=== PATIENT | female | born 1940 | race Caucasian/White ===

== ENCOUNTER 2017-12-09 09:44 | Outpatient (RCR) | payer MEDICARE, OTHER ==
[2014-12-29 08:08] VITALS: Wt 103.6 kg
[2017-11-30 09:28] VITALS: BP 171/82
[2017-11-30 09:46] LABS: PLATELET COUNT, AUTOMATED 164 K/uL (150-450)
[~2017-12-09 09:44] MED LIST: ACE3 PO; ACET-1718 PO; AMLO-552 PO; ANAS1TAB35 PO; ASCO-182 PO; ASCO100T15 PO; ASPI-1471 PO; ASPI81TA94 PO; AZIT500T47 PO; BISO1TAB91 PO; CALC1TAB32 PO; CALC500T6 PO; CHOL10005 PO; DEN120I SUBQ; DOCU-202 PO; DOXA8TAB11 PO; FLUO-202 PO; GLUC-198 PO; GLY25 PO; GUALA600 PO; LOR5/325 PO; MAGN27TA6 PO; MET500 PO; METF-411 PO; METF-420 PO; METF-421 PO; MULT-1085 PO; MULT-1335 PO; NAPR220C12 PO; OMEP-218 PO; OXYGENHOME INH; PER PO; POTA-53 PO; POTASSIUM CHLORIDE PO; SILV20CR2 TP; VITAMINS; WARF-12 PO; ZIA10 PO; ZINC30TA5 PO; [UNRECOGNIZED DRUG - CODE] PO
[2017-12-09 10:03] VITALS: BP 131/84
--- NOTE | 2017-12-09 18:39 | ONCOLOGY FOLLOW UP NOTE ---
EVENT DATE: December 09, 2017 REASON FOR FOLLOWUP 1. Oligometastatic breast cancer, ongoing aromatase inhibitor therapy. 2. Renal cell carcinoma, status post partial nephrectomy. INTERIM HISTORY Sharmaine returns to clinic for a follow-up visit today. She is accompanied by her . Symptomatically, she reports that she has been doing about the same, but she has had some more problems with bilateral shoulder pain. She does have some ongoing fatigue. Her appetite is good, and her weight has been pretty stable. She reports no changes in bowel or bladder habits. She denies abdominal pain. She has noticed no new lumps or bumps in the breast or underarms. She continues to take Arimidex once daily, and she does not miss doses. REVIEW OF SYSTEMS Otherwise negative, and all systems were reviewed. ONCOLOGY HISTORY 1. Initial presentation in spring with a mammogram showing a nonspecific density in the right breast posterior to the nipple, as well as concern for nipple inversion. A subsequent ultrasound showed a 2.2 x 2.0 x 1.0 cm hypoechoic abnormality in the 6 o'clock position. She then underwent an ultrasound-guided biopsy of the right breast mass. a. December 28, 2014, right modified radical mastoidectomy. Pathology shows invasive ductal carcinoma, 1.5 cm, five of seven lymph nodes positive. Estrogen receptor positive at 98%, progesterone receptor positive at 95%, HER2/ rik was 1+, with Ki-67 being 18.9%. b. January 18, 2015: CT PET scan shows hypermetabolic focus in the left acetabulum with SUV of 6.7. c. January 22, 2015: MRI pelvis: 1.9 cm isolated bone metastatic lesion within the anterosuperior left acetabulum. d. January 31, 2015: Left iliac core biopsy shows involvement by involvement by a non-small cell carcinoma with features most compatible with metastatic adenocarcinoma of breast origin. Of note, tumor markers at this time were unremarkable. e. February 07, 2015: Initiation of palliative Arimidex 1 mg p.o. daily. f. February 26, 2015: Initiation of palliative radiation to the left acetabulum and chest wall. g. Ongoing clinical followup with tumor markers and imaging. Her most recent follow-up CT PET scan was on January 18, 2015. This showed postoperative changes from right mastectomy, postoperative changes with one FDG uptake over the right chest wall, and FDG avid focus in the left acetabulum with no CT correlate. Incidentally noted was an enlarged main pulmonary artery suggesting pulmonary arterial hypertension. h. May 20, 2017: CT PET scan: Postoperative changes from right breast mastectomy, cholecystectomy and surgical changes to the left kidney are stable; no evidence of breast cancer recurrence or metastasis in the neck, chest, abdomen, pelvis or upper thighs. 2. Renal cell carcinoma. Initial presentation in mid 2015 with imaging concerns for a left kidney mass. a. February 15, 2016: Core needle biopsies of left kidney mass show renal carcinoma, clear cell type, grade 1 (well differentiated), no angiolymphatic invasion is identified. b. April 23, 2016: Left partial nephrectomy. Pathology: 2.8 cm (pT1a) unifocal renal cell carcinoma, clear cell type. Sarcomatoid features and tumor necrosis were not identified. This was a grade 1, well differentiated renal cell carcinoma. Capsular and resection margins were negative for carcinoma. PAST MEDICAL HISTORY 1. Type 2 diabetes mellitus. 2. Obesity. 3. Breast cancer, as above. 4. Renal cell carcinoma, as above. 5. Reported mild depression. 6. Hypertension. PAST SURGICAL HISTORY 1. Status post cervical spinal fusion. 2. History of cholecystectomy. 3. History of hysterectomy. 4. History of cataract surgery. 5. History of right knee replacement. 6. Breast surgery and partial nephrectomy as noted in the Oncologic History. CURRENT MEDICATIONS 1. Multivitamin. 2. Arimidex 1 mg p.o. daily. 3. Metformin. 4. Potassium. 5. Doxazosin. 6. Fluoxetine. 7. Lisinopril/hydrochlorothiazide. 8. Glyburide. ALLERGIES Include KIWI and DIAZEPAM. FAMILY HISTORY There is a family history of breast cancer in a maternal aunt, diagnosed at 60- plus years. There is also a family history of lung cancer. SOCIAL HISTORY The patient is retired. 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 She is and has two sons. She drinks alcohol only occasionally. There is no history of smoking or illicit drug use. VITAL SIGNS Temperature is 98.1, blood pressure 131/84, heart rate is 61, respirations 18, oxygen saturation is 90% on room air. Weight is 103.6 kg. PHYSICAL EXAMINATION GENERAL: Patient is alert and oriented times three, in no apparent distress, sitting in the exam room chair. She is in good spirits, and quite interactive. HEENT: Exam reveals anicteric sclerae. NEUROLOGIC: Exam is grossly nonfocal and her gait is somewhat antalgic, but stable. EXTREMITIES: Exam reveals some edema of the bilateral lower extremities, mild. There is no erythema or tenderness to palpation. LABORATORY STUDIES Reviewed per the [facility] record. IMAGING CT/PET scan from December 03, reveals no evidence of FDG avid malignancy. There is evidence of prior right mastectomy with implant reconstruction. There is a 1.5 cm nodule within the implant itself superiorly. This is not FDG avid and very likely benign. There is evidence of partial left nephrectomy changes without recurrent nodularity. ASSESSMENT AND PLAN 1. Oligometastatic ER positive breast cancer. Sharmaine continues to do pretty well in general. She remains on aromatase inhibitor therapy with modest, if any toxicity. She does have some ongoing arthralgias, particularly in her shoulders. We spent a good deal of time today discussing her lack of physical activity. I had recommended that she consider seeing a physical therapist before, and she was not particularly interested. We readdressed this today. She does express some interest, and a referral will be made. We discussed the findings of her recent CT/PET scan. There is no evidence of recurrence on this study. I have recommended that she follow up with me in three months, or sooner if there are questions or concerns. 2. Renal cell carcinoma. There is no concern at this time for recurrent renal cell carcinoma. She will have additional future re-imaging as part of her breast cancer surveillance, as well. JEREMY
[2017-12-28] MEDS ORDERED: DOXA8TAB11 PO (17:16)
[2017-12-29] MEDS ORDERED: METF-411 PO (09:04)
[2017-12-29] MEDS ORDERED: FLUO-202 PO (09:04)
[2017-12-29] MEDS ORDERED: GLY25 PO (09:04)
[2017-12-29] MEDS ORDERED: DOXA8TAB11 PO (09:04)
[2017-12-29] MEDS ORDERED: ZIA10 PO (09:31)
[2017-12-29] MEDS ORDERED: AMLO-552 PO (09:31)
[2018-02-11] MEDS ORDERED: HYDR-385 PO (21:34)
[2018-02-12] MEDS ORDERED: HYDR-385 PO (15:22)
[2018-02-25] MEDS ORDERED: POTA-53 PO (15:08)
== END 2018-02-28 ==
LOC: ONC 09:44
PROVIDERS: ATTEND Internal Medicine Medical Oncology
DX: C50.811 Malignant neoplasm of overlapping sites of right female breast (principal); C64.2 Malignant neoplasm of left kidney, except renal pelvis; M25.512 Pain in left shoulder; M25.511 Pain in right shoulder; E11.9 Type 2 diabetes mellitus without complications
CPT/HCPCS: 36415; 82378; 85025; 86300; G0463; 82040; 82247; 82310; 82374; 82435; 82565; 82947; 84075; 84132; 84155; 84295; 84450; 84460; 84520; 99212

== ENCOUNTER → 2017-12-14 | Outpatient (CLI) | payer MEDICARE, OTHER ==
[2014-12-29 08:08] VITALS: BMI 43.5
[~2017-12-14] MED LIST changes: +METF-410 PO; -METF-411 PO; -METF-421 PO
== END ==
LOC: LAB 08:37
PROVIDERS: ATTEND Nurse Practitioner Family
DX: I10 Essential (primary) hypertension (principal); E55.9 Vitamin D deficiency, unspecified; E11.69 Type 2 diabetes mellitus with other specified complication; E66.9 Obesity, unspecified
CPT/HCPCS: 36415; 82306; 82465; 83036; 83718; 84443; 84478

== ENCOUNTER 2018-02-11 20:04 | Emergency (ER) | payer MEDICARE, OTHER ==
[2014-12-29 08:08] VITALS: Wt 102.2 kg
[~2018-02-11 20:04] MED LIST changes: -METF-410 PO; +METF-411 PO; +METF-421 PO
--- NOTE | 2018-02-11 20:14 | ER Report ---
History and Physical Time Seen By MD: 20:14 Hx. of Stated Complaint: fell approximately 5 steps. needed help to get up. rt ring finger swollen, ring still stuck on it. not sure if anything else is hurt HPI/ROS CHIEF COMPLAINT: Fall HISTORY OF PRESENT ILLNESS: 69-year-old female patient presents to emergency room with complaint of a fall. Patient states she fell approximately 5 steps. She states that she was in the kitchen at her home, she went to go down the stairs. When she did that she lost her balance or shower for the banister, however she missed and fell the 5 steps. She denies having any loss consciousness, she denies hitting her head, she denies any neck or back pain. Patient has pain to the right hand, right shoulder. She denies any pain anywhere else. She states she is not taking any medication for this. She denies having any fevers or chills. REVIEW OF SYSTEMS: Respiratory: No cough, no dyspnea. Cardiovascular: No chest pain, no palpitations. Gastrointestinal: No vomiting, no abdominal pain. Musculoskeletal: As noted above Allergies: Coded Allergies: kiwi (Verified Allergy, Mild, EARS SWELL INSIDE, 02/11/18) Sulfa (Sulfonamide Antibiotics) (Verified Allergy, Unknown, 02/11/18) EHR CONVERSION succinylcholine (Verified Allergy, Unknown, 02/11/18) EHR CONVERSION diazepam (Verified Adverse Reaction, Intermediate, MAKES HER CRAZY, ) Home Meds Active Scripts Hydrocodone Bit/Acetaminophen (HYDROCODON-ACETAMINOPHEN 5-325) 1 Each Tablet, 1 EACH PO Q4-6H Y for PAIN, #8 TAB Prov:RADHA BOLTON 02/11/18 Amlodipine Bes/Olmesartan Med (WILDA 10-40 MG TABLET) 1 Each Tablet, 1 EACH PO QDAY, #90 TAB 4 Refills Prov:DAVID CASTELLANO APRN-C 12/29/17 Hctz/Bisoprolol (ZIAC 10-6.25 MG TABLET) 1 Ea Tab, 1 EA PO QDAY, #90 TAB 4 Refills Prov:DAVID CASTELLANO APRN-C 12/29/17 Doxazosin Mesylate (DOXAZOSIN MESYLATE) 8 Mg Tablet, 1 TAB PO QDAY, #90 TAB 4 Refills Prov:DAVID CASTELLANO APRN CONTENT SPECIALIST-C 12/29/17 Glyburide (GLYBURIDE) 2.5 Mg Tab, 1 TAB PO DAILY, #90 TAB 4 Refills Prov:DAVID CASTELLANO KARLEE CONTENT SPECIALIST-C 12/29/17 Fluoxetine Hcl (PROZAC) 20 Mg Capsule, 1 CAP PO QDAY, #90 CAPSULE 1 Refill Prov:DAVID CASTELLANO KARLEE CONTENT SPECIALIST-C 12/29/17 Metformin Hcl (METFORMIN HCL) 500 Mg Tablet, 1-2 TAB PO BID, #180 TAB 4 Refills 2 tabs in the morning and 1 tab evening Prov:DAVID CASTELLANO KARLEE CONTENT SPECIALIST-C 12/29/17 Anastrozole (ARIMIDEX) 1 Mg Tablet, 1 MG PO DAILY for 90 Days, #90 TAB 4 Refills Prov:GENESIS RILEY CONTENT SPECIALIST-BC, ONC 02/18/17 Reported Medications Oxygen (OXYGEN) Unknown Strength Inha, INH, L 06/10/17 Calcium Carb & Cit/Vitamin D3 (CALCIUM + D3 ER TABLET) 1 Each Tablet.er, 1 TAB PO DAILY 06/10/17 Naproxen Sodium (ALEVE) Unknown Strength Capsule, PO BID, CAPSULE 06/10/17 Cholecalciferol (Vitamin D3) (VITAMIN D3) 1,000 Unit Tablet, 2000 UNIT PO QDAY, TAB 06/02/17 Ascorbic Acid (VITAMIN C) 500 Mg Tablet, 500 MG PO QDAY, TAB 06/02/17 Glucosa Connelly 2KCL/Chondroitin Connelly (GLUCOSAMINE & CHONDROITIN CAP) 1 Each Capsule, 1 EACH PO QDAY, CAPSULE 06/02/17 Aspirin (ASPIR 81) 81 Mg Tablet.dr, 1 TAB PO QDAY, TAB 05/08/17 Multivitamin With Minerals (MULTIPLE VITAMIN) 1 Each Tablet, 1 EACH PO DAILY, TAB 10/22/16 Potassium Chloride (POTASSIUM CHLORIDE) 10 Meq Tab.er.prt, 10 MEQ PO QDAY 12/05/14 Past Medical/Surgical History Patient has a past medical history of hypertension, pneumonia, oxygen at night, reflux, cholecystitis, kidney cancer, arthritis, diabetes, depression, breast cancer, hip cancer. Patient has surgical history of cholecystectomy, appendectomy, hysterectomy, tonsillectomy, cataract surgery, right breast mastectomy. Reviewed Nurses Notes: Yes Hx Smoking: Yes (AGE 15 FOR 2 YRS) Smoking Status: Former Smoker Hx Substance Use Disorder: No Hx Alcohol Use: No Constitutional Vital Sign - Last 24 Hours 02/11/18 02/11/18 02/11/18 02/11/18 20:09 20:11 20:19 20:34 Temp 98.1 Pulse 76 76 68 Resp 16 B/P (MAP) 141/58 141/58 (85) Pulse Ox 84 91 91 O2 Delivery Room Air 02/11/18 02/11/18 02/11/18 02/11/18 20:49 21:04 21:19 21:39 Pulse 67 64 65 71 Pulse Ox 93 94 93 94 02/11/18 21:46 B/P (MAP) 128/55 (79) Physical Exam General Appearance: The patient is alert, has no immediate need for airway protection and no current signs of toxicity. ENT: Tympanic membranes are pearly-gtz, auditory canals are patent, mucous membranes are moist. Respiratory: Chest is non tender, lungs are clear to auscultation. Cardiac: regular rate and rhythm Gastrointestinal: Abdomen is soft and non tender, no masses, bowel sounds normal. Musculoskeletal: Neck: Neck is supple and non tender. Extremities have full range of motion and are non tender. Patient has tenderness to the right hand especially on the fourth digit, tenderness to the right shoulder. The right fourth digit does appear to be swollen and bruised. Skin: No rashes or lesions. DIFFERENTIAL DIAGNOSIS: After history and physical exam differential diagnosis was considered for contusion, fracture, dislocation. Medical Decision Making EKG/Imaging Imaging HAND COMPLETE RIGHT HISTORY: Fall with pain shoulder and right third digit. COMPARISON: None. TECHNIQUE: PA, oblique, and lateral views of the right hand. FINDINGS: There is an oblique fracture through the middle phalanx of the fourth digit. There is 3-4 mm volar step off of the distal fracture fragment compared to the proximal. There is associated soft tissue swelling. There is mild degenerative change of the radiocarpal joint and of the scaphoid trapezium and scaphoid trapezoid articulations. There is mild degenerative change of the distal interphalangeal joints of the second and third digits. IMPRESSION: 1. Displaced fourth middle phalanx fracture. Report Dictated By: Caroline Olivier at 02/11/2018 9:18 PM Report E-Signed By: Caroline Olivier at 02/11/2018 9:21 PM Examination: SHOULDER MIN 2 VIEWS RIGHT Comparison: None. History: fall with pain Findings: No fracture. Alignment is within normal limits. Glenohumeral joint space is fairly well preserved although there is mild degenerative change at the acromioclavicular joint. No evidence of acute disease in the visualized thorax. Cervical spine fusion. No soft tissue abnormality. IMPRESSION: No right shoulder fracture or malalignment. Report Dictated By: Ashu Andrews MD at 02/11/2018 9:06 PM Report E-Signed By: Ashu Andrews MD at 02/11/2018 9:09 PM ED Course/Re-evaluation ED Course Patient was admitted to an exam room, history and physical were obtained. Differential diagnoses were considered. On examination patient does have bruising and swelling to the right fourth digit, she also has some tenderness to the right shoulder. Patient had no other tenderness on physical exam. X-rays done of right hand in the right shoulder. The x-ray shows a middle phalanx fracture of the right fourth finger, no acute injury to the right shoulder. I discussed the findings with the patient and her . We will place the patient in a splint, discharge her home. She will be given a limited supply of pain medication. I will have her follow-up with Dr. Osullivan, orthopedist, she is to call in the morning to make an appointment. Patient and her verbalized understanding and agreement with plan. Decision to Disposition Date: February 11, 2018 Decision to Disposition Time: 21:35 Depart Departure Latest Vital Signs Vital Signs Date Time Temp Pulse Resp B/P (MAP) Pulse Ox O2 Delivery O2 Flow Rate FiO2 02/11/18 21:46 128/55 (79) 02/11/18 21:39 71 94 02/11/18 20:09 98.1 16 Room Air Impression: Primary Impression: Fracture of middle phalanx of finger of right hand Condition: Improved Disposition: HOME OR SELF-CARE Referrals: ABEL COOK MD (PCP) YULY OSULLIVAN MD New Scripts Hydrocodone Bit/Acetaminophen (HYDROCODON-ACETAMINOPHEN 5-325) 1 Each Tablet 1 EACH PO Q4-6H Y for PAIN, #8 TAB Prov: RADHA BOLTON CONTENT SPECIALIST 02/12/18 Hydrocodone Bit/Acetaminophen (HYDROCODON-ACETAMINOPHEN 5-325) 1 Each Tablet 1 EACH PO Q4-6H Y for PAIN, #8 TAB Prov: RADHA BOLTON 02/11/18 Patient Instructions: Finger Fracture (ED) Additional Instructions: Limit activity by pain. Ice the finger through the splint; 2-3 times a day for 20-30 minutes. If the splint is feeling too tight you may loosen the tape and rewrap it. Follow up with [facility], call tomorrow to make an appointment. Keep the splint dry. Return to the ER with uncontrollable pain or numbness to the hand. You may take Ibuprofen as needed for pain in addition to the pain medication. Don't take any additional Tylenol while on the pain medication. RADHA BOLTON February 11, 2018 20:14
--- NOTE | 2018-02-11 21:13 | RADIOLOGY IMAGING REPORT ---
[place] [facility] [place] NAME: Sharmaine Martin : 1940 MR: [id number] V: [id number] EXAM DATE: ORDERING PHYSICIAN: RADHA BOLTON TECHNOLOGIST: Location: [facility] Patient: Sharmaine Martin : 1940 Visit/Account:[id number] Date of Sevice: 02/11/2018 Examination: SHOULDER MIN 2 VIEWS RIGHT Comparison: None. History: fall with pain Findings: No fracture. Alignment is within normal limits. Glenohumeral joint space is fairly well pre served although there is mild degenerative change at the acromioclavicular joint. No evidence of acut e disease in the visualized thorax. Cervical spine fusion. No soft tissue abnormality. IMPRESSION: No right shoulder fracture or malalignment. Report Dictated By: Ashu Andrews MD at 02/11/2018 9:06 PM Report E-Signed By: Ashu Andrews MD at 02/11/2018 9:09 PM WSN:[id number]
--- NOTE | 2018-02-11 21:25 | RADIOLOGY IMAGING REPORT ---
[place] [facility] [place] NAME: Sharmaine Martin : 1940 MR: [id number] V: [id number] EXAM DATE: ORDERING PHYSICIAN: RADHA BOLTON TECHNOLOGIST: Location: [facility] Patient: Sharmaine Martin : 1940 Visit/Account:[id number] Date of Sevice: 02/11/2018 HAND COMPLETE RIGHT HISTORY: Fall with pain shoulder and right third digit. COMPARISON: None. TECHNIQUE: PA, oblique, and lateral views of the right hand. FINDINGS: There is an oblique fracture through the middle phalanx of the fourth digit. There is 3-4 m m volar step off of the distal fracture fragment compared to the proximal. There is associated soft t issue swelling. There is mild degenerative change of the radiocarpal joint and of the scaphoid trapezium and scaphoid trapezoid articulations. There is mild degenerative change of the distal interphalangeal joints of t he second and third digits. IMPRESSION: 1. Displaced fourth middle phalanx fracture. Report Dictated By: Caroline Olivier at 02/11/2018 9:18 PM Report E-Signed By: Caroline Olivier at 02/11/2018 9:21 PM WSN:[id number]
[2018-02-11] MEDS ORDERED: HYDR-385 PO (21:34)
[2018-02-11] MEDS ORDERED: ACET/HYDROC 5/325MG TH ER ONLY 2 TAB/BOTTLE PO ONE (21:40)
[2018-02-11 21:46] VITALS: BP 128/55
[2018-02-12] MEDS ORDERED: HYDR-385 PO (15:22)
== END 2018-02-11 21:53 | disposition home or self-care (01) ==
LOC: ER 20:21
DX: S62.624A Displaced fracture of middle phalanx of right ring finger, initial encounter for closed fracture (principal); W10.9XXA Fall (on) (from) unspecified stairs and steps, initial encounter
CPT/HCPCS: 99284

== ENCOUNTER 2018-03-16 10:00 | Outpatient (RCR) | payer MEDICARE, OTHER ==
[2014-12-29 08:08] VITALS: Wt 102.0 kg
[2018-03-09 09:32] LABS: PLATELET COUNT, AUTOMATED 147 K/uL (150-450)
[~2018-03-16 10:00] MED LIST changes: +HYDR-385 PO
[2018-03-16 10:17] VITALS: BP 135/78
--- NOTE | 2018-03-17 04:22 | ONCOLOGY FOLLOW UP NOTE ---
EVENT DATE: March 16, 2018 REASON FOR FOLLOWUP 1. Oligometastatic breast cancer, ongoing aromatase inhibitor therapy. 2. Renal cell carcinoma, status post partial nephrectomy. INTERIM HISTORY Sharmaine returns to clinic for a followup visit today. In general, she reports that things have been going pretty well with the exception of recent fall down the stairs, where she injured her hand, and has had some right-sided rib and back pain since. She reports no head trauma. She continues to take Arimidex daily. She does not miss doses. She reports no unexpected pain, given her recent fall. She denies significant hot flashes, but she remains with fatigue that has been bearable. She reports no changes in bowel or bladder habits. ONCOLOGY HISTORY 1. Initial presentation in spring with a mammogram showing a nonspecific density in the right breast posterior to the nipple, as well as concern for nipple inversion. A subsequent ultrasound showed a 2.2 x 2.0 x 1.0 cm hypoechoic abnormality in the 6 o'clock position. She then underwent an ultrasound-guided biopsy of the right breast mass. a. December 28, 2014, right modified radical mastoidectomy. Pathology shows invasive ductal carcinoma, 1.5 cm, five of seven lymph nodes positive. Estrogen receptor positive at 98%, progesterone receptor positive at 95%, HER2/ rik was 1+, with Ki-67 being 18.9%. b. January 18, 2015: CT PET scan shows hypermetabolic focus in the left acetabulum with SUV of 6.7. c. January 22, 2015: MRI pelvis: 1.9 cm isolated bone metastatic lesion within the anterosuperior left acetabulum. d. January 31, 2015: Left iliac core biopsy shows involvement by involvement by a non-small cell carcinoma with features most compatible with metastatic adenocarcinoma of breast origin. Of note, tumor markers at this time were unremarkable. e. February 07, 2015: Initiation of palliative Arimidex 1 mg p.o. daily. f. February 26, 2015: Initiation of palliative radiation to the left acetabulum and chest wall. g. Ongoing clinical followup with tumor markers and imaging. Her most recent follow-up CT PET scan was on January 18, 2015. This showed postoperative changes from right mastectomy, postoperative changes with one FDG uptake over the right chest wall, and FDG avid focus in the left acetabulum with no CT correlate. Incidentally noted was an enlarged main pulmonary artery suggesting pulmonary arterial hypertension. h. May 20, 2017: CT PET scan: Postoperative changes from right breast mastectomy, cholecystectomy and surgical changes to the left kidney are stable; no evidence of breast cancer recurrence or metastasis in the neck, chest, abdomen, pelvis or upper thighs. 2. Renal cell carcinoma. Initial presentation in mid 2015 with imaging concerns for a left kidney mass. a. February 15, 2016: Core needle biopsies of left kidney mass show renal carcinoma, clear cell type, grade 1 (well differentiated), no angiolymphatic invasion is identified. b. April 23, 2016: Left partial nephrectomy. Pathology: 2.8 cm (pT1a) unifocal renal cell carcinoma, clear cell type. Sarcomatoid features and tumor necrosis were not identified. This was a grade 1, well differentiated renal cell carcinoma. Capsular and resection margins were negative for carcinoma. PAST MEDICAL HISTORY 1. Type 2 diabetes mellitus. 2. Obesity. 3. Breast cancer, as above. 4. Renal cell carcinoma, as above. 5. Reported mild depression. 6. Hypertension. PAST SURGICAL HISTORY 1. Status post cervical spinal fusion. 2. History of cholecystectomy. 3. History of hysterectomy. 4. History of cataract surgery. 5. History of right knee replacement. 6. Breast surgery and partial nephrectomy as noted in the Oncologic History. CURRENT MEDICATIONS 1. Multivitamin. 2. Arimidex 1 mg p.o. daily. 3. Metformin. 4. Potassium. 5. Doxazosin. 6. Fluoxetine. 7. Lisinopril/hydrochlorothiazide. 8. Glyburide. ALLERGIES Include KIWI and DIAZEPAM. FAMILY HISTORY There is a family history of breast cancer in a maternal aunt, diagnosed at 60- plus years. There is also a family history of lung cancer. SOCIAL HISTORY The patient is retired. 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 She is and has two sons. She drinks alcohol only occasionally. There is no history of smoking or illicit drug use. VITAL SIGNS Temperature is 97.1, blood pressure 135/78, heart rate is 76, respirations 16, oxygen saturation is 89% on room air. Weight is 102 kg. PHYSICAL EXAMINATION GENERAL: Patient is alert and oriented x three, in no apparent distress, sitting in the exam room chair. She is interactive and pleasant. HEENT: Exam reveals anicteric sclerae. NEUROLOGIC: Exam is grossly nonfocal, although her gait is somewhat antalgic but stable. SKIN: Exam reveals no concerning rash or lesion. LABORATORY DATA Laboratory studies are reviewed per the [facility] record. IMAGING None today. ASSESSMENT AND PLAN 1. Oligometastatic [id number] right breast cancer. Sharmaine continues on palliative Arimidex therapy. She is tolerating treatment without significant toxicity. We spent time reviewing her laboratory studies today. These are unremarkable, including tumor markers. She agrees that the plan moving forward will be for her to continue with palliative Arimidex. She is interested in undergoing re-imaging in three months, and this is certainly reasonable. We discussed both CT PET followup and contrast CT followup, and both of these would be reasonable. I will plan to see the patient in three months, after her followup imaging is complete, or sooner if she has questions or concerns. 2. Renal cell carcinoma. No concerning signs or symptoms to suggest recurrence of kidney cancer today. This will be followed up with above- mentioned imaging. MTDD
== END 2018-04-08 13:55 | disposition home or self-care (01) ==
LOC: ONC 10:00
PROVIDERS: ATTEND Internal Medicine Medical Oncology
DX: C50.811 Malignant neoplasm of overlapping sites of right female breast (principal); C64.2 Malignant neoplasm of left kidney, except renal pelvis; E11.9 Type 2 diabetes mellitus without complications
CPT/HCPCS: 36415; 82378; 85025; 86300; G0463; 82040; 82247; 82310; 82374; 82435; 82565; 82947; 84075; 84132; 84155; 84295; 84450; 84460; 84520; 99212

== ENCOUNTER 2018-06-16 10:03 | Outpatient (RCR) | payer MEDICARE, OTHER ==
[2014-12-29 08:08] VITALS: Wt 102.4 kg
[2018-06-07 08:58] LABS: PLATELET COUNT, AUTOMATED 139 K/uL (150-450)
--- NOTE | 2018-06-07 13:46 | RADIOLOGY IMAGING REPORT ---
FACILITY: [facility] PATIENT NAME: Sharmaine Martin : 1940 MR: [id number] V: [id number] EXAM DATE: ORDERING PHYSICIAN: PARTH COLLINS TECHNOLOGIST: Location: [facility] Patient: Sharmaine Martin : 1940 Visit/Account:[id number] Date of Sevice: 06/07/2018 CHEST/AB/PELV W/OUT CONTRAST HISTORY: History of breast cancer, history of renal cell carcinoma ADDITIONAL HISTORY: None. TECHNIQUE: Contiguous axial images acquired through the chest abdomen and pelvis without IV contrast. Coronal and sagittal reformatting was also performed. Dose Lowering Technique One of the following dose optimization techniques was utilized in the performance of this exam: Autom ated exposure control; adjustment of the mA and/or kV according to the patient's size; or use of an i terative reconstruction technique. Specific details can be referenced in the facility's radiology C T exam operational policy. COMPARISON: PET/CT December 03, 2017 FINDINGS: CHEST: Lungs/Pleura: There is bilateral pleural parenchymal scarring that appears similar to the prior PET/ CT Mediastinum/lymph nodes: Mediastinal structures not ideally evaluated due to lack of intravenous con trast although no gross evidence of pathologic-appearing hilar or mediastinal adenopathy Heart/vessels: Pulmonary trunk and main point arteries appear prominent Bones/soft tissues: There are postsurgical changes from anterior fusion of the lower cervical spine. There are postsurgical changes from a right mastectomy with implant reconstruction. There is a sli ghtly mottled appearance to the body of the right scapula. ABDOMEN AND PELVIS: Hepatobiliary: There are postsurgical changes from a cholecystectomy Spleen: Negative. Pancreas: Negative. Adrenals: There is slight nodularity of the left adrenal gland that appears unchanged Kidneys ureters and bladder : There Is a 1.3 cm hypodensity with small punctate calcification mid amanda e the right kidney. This appears unchanged when compared the prior PET/CT from the prior CT from Mar. 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 There is a small umbilical herni a containing fat Additional findings: None pertinent. IMPRESSION: There are postsurgical changes from a partial nephrectomy on the left. No definite local recurrence identified in the surgical site however study is limited due to lack of contrast There is a 1 cm round hyperdense mass posterior aspect lower pole the left kidney which was not seen on prior CT from March 19, 2016 there for further evaluation with MR may be helpful. This a slightly mottled appearance to the body of the right scapula. This may simply be related to o steoporosis however if of clinical concern a bone scan may be helpful Pole right trunk and main pulmonary arteries appear prominent Bilateral pleural parenchymal scarring in the lungs. 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
[~2018-06-16 10:03] MED LIST changes: +ANAS1TAB12 PO; -ANAS1TAB35 PO; -METF-411 PO; -METF-421 PO; +METF-450 PO; +METF-452 PO
[2018-06-16 10:32] VITALS: BP 125/58
--- NOTE | 2018-06-16 14:40 | ONCOLOGY FOLLOW UP NOTE ---
EVENT DATE: June 16, 2018 REASON FOR FOLLOWUP 1. Oligometastatic breast cancer, ongoing aromatase inhibitor therapy. 2. Renal cell carcinoma, status post partial nephrectomy. INTERIM HISTORY Sharmaine returns to clinic for a followup visit today. She is accompanied by her . Since our last visit, she reports that she has been feeling about the same. She has had significant aches and pains; however, she feels that in general these have worsened over the past few years. She does have sore joints in her shoulders, back, hips, and knees. She reports no fever. Hot flashes have been minimal. Her appetite is quite good. She had a fall a couple months ago. She reports no new urinary symptoms. She denies significant issues with diarrhea or constipation. She has had no nausea. She has undergone followup imaging, and she is here to review the results. ONCOLOGY HISTORY 1. Initial presentation in spring with a mammogram showing a nonspecific density in the right breast posterior to the nipple, as well as concern for nipple inversion. A subsequent ultrasound showed a 2.2 x 2.0 x 1.0 cm hypoechoic abnormality in the 6 o'clock position. She then underwent an ultrasound-guided biopsy of the right breast mass. a. December 28, 2014, right modified radical mastoidectomy. Pathology shows invasive ductal carcinoma, 1.5 cm, five of seven lymph nodes positive. Estrogen receptor positive at 98%, progesterone receptor positive at 95%, HER2/rik was 1+, with Ki-67 being 18.9%. b. January 18, 2015: CT/PET scan shows hypermetabolic focus in the left acetabulum with SUV of 6.7. c. January 22, 2015, MRI pelvis: 1.9 cm isolated bone metastatic lesion within the anterosuperior left acetabulum. d. January 31, 2015: Left iliac core biopsy shows involvement by a non-small cell carcinoma with features most compatible with metastatic adenocarcinoma of breast origin. Of note, tumor markers at this time were unremarkable. e. February 07, 2015: Initiation of palliative Arimidex 1 mg p.o. daily. f. February 26, 2015: Initiation of palliative radiation to the left acetabulum and chest wall. g. Ongoing clinical followup with tumor markers and imaging. Her most recent followup CT/PET scan was on January 18, 2015. This showed postoperative changes from right mastectomy, postoperative changes with one FDG uptake over the right chest wall, and FDG avid focus in the left acetabulum with no CT correlate. Incidentally noted was an enlarged main pulmonary artery suggesting pulmonary arterial hypertension. h. May 20, 2017, CT/PET scan: Postoperative changes from right breast mastectomy, cholecystectomy, and surgical changes to the left kidney are stable. No evidence of breast cancer recurrence or metastasis in the neck, chest, abdomen, pelvis, or upper thighs. i. June 07, 2018, CT of chest, abdomen, and pelvis reveals stable changes from prior CT/PET scan. 2. Renal cell carcinoma. Initial presentation in mid 2015 with imaging concerns for a left kidney mass. a. February 15, 2016: Core needle biopsies of left kidney mass show renal carcinoma, clear cell type, grade 1 (well differentiated), no angiolymphatic invasion is identified. b. April 23, 2016: Left partial nephrectomy. Pathology: 2.8 cm (pT1a) unifocal renal cell carcinoma, clear cell type. Sarcomatoid features and tumor necrosis were not identified. This was a grade 1, well differentiated renal cell carcinoma. Capsular and resection margins were negative for carcinoma. PAST MEDICAL HISTORY 1. Type 2 diabetes mellitus. 2. Obesity. 3. Breast cancer, as above. 4. Renal cell carcinoma, as above. 5. Reported mild depression. 6. Hypertension. PAST SURGICAL HISTORY 1. Status post cervical spinal fusion. 2. History of cholecystectomy. 3. History of hysterectomy. 4. History of cataract surgery. 5. History of right knee replacement. 6. Breast surgery and partial nephrectomy as noted in the Oncologic History. CURRENT MEDICATIONS 1. Multivitamin. 2. Arimidex 1 mg p.o. daily. 3. Metformin. 4. Potassium. 5. Doxazosin. 6. Fluoxetine. 7. Lisinopril/hydrochlorothiazide. 8. Glyburide. ALLERGIES KIWI and DIAZEPAM. FAMILY HISTORY There is a family history of breast cancer in a maternal aunt, diagnosed at 60- plus years. There is also a family history of lung cancer. SOCIAL HISTORY The patient is retired. 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 She is and has two sons. She drinks alcohol only occasionally. There is no history of smoking or illicit drug use. VITAL SIGNS Temperature is 97.2, blood pressure 125/58, heart rate is 66, respirations 16, oxygen saturation is 95% on room air. PHYSICAL EXAMINATION GENERAL: Patient is alert and oriented times three, in no apparent distress, sitting in the exam room chair. HEENT: Anicteric sclerae. NEUROLOGIC: Grossly nonfocal, although her gait is slow and somewhat antalgic. EXTREMITIES: Some edema of the bilateral lower extremities, but no erythema or clubbing. LABORATORY STUDIES Reviewed per the [facility] record. Tumor markers are normal. IMAGING Please see Oncology History. ASSESSMENT AND PLAN 1. Oligometastatic estrogen receptor-positive right breast cancer. Sharmaine continues on palliative Arimidex therapy. She continues to tolerate this treatment fairly well, but we did spend some time today discussing her ongoing arthralgias that seem to be gradually getting worse over time. This certainly could be related to arthritis/other musculoskeletal issues independent of the aromatase inhibitor. She is overweight, and she does not exercise. I have strongly recommended that she visit with Physical Therapy, and she does seem to have an open mind to this today. I would like to follow up with her in about three months after repeat labs. We will see how much progress she has made with physical therapy. If her pain is the same at that time, we may need to consider giving her a break from the aromatase inhibitor to see if this has any effect. Sharmaine and her had several additional questions today, and I believe I answered all of their questions to their satisfaction. 2. Renal cell carcinoma. Again, imaging findings are stable from her prior CT/PET scan. This will be monitored over time as well. MTDD
[2018-06-28] MEDS ORDERED: GLY25 PO (08:39)
[2018-06-28] MEDS ORDERED: POTA-53 PO (08:39)
[2018-07-16] MEDS ORDERED: FLUO-202 PO (09:51)
== END 2018-09-02 ==
LOC: ONC 10:03
PROVIDERS: ATTEND Internal Medicine Medical Oncology
DX: C50.811 Malignant neoplasm of overlapping sites of right female breast (principal); C64.2 Malignant neoplasm of left kidney, except renal pelvis; N28.89 Other specified disorders of kidney and ureter; I72.2 Aneurysm of renal artery
CPT/HCPCS: 36415; 71250; 74176; 82378; 85025; 86300; G0463; 82040; 82247; 82310; 82374; 82435; 82565; 82947; 84075; 84132; 84155; 84295; 84450; 84460; 84520; 99212

== ENCOUNTER → 2018-09-15 | Outpatient (CLI) | payer MEDICARE, OTHER ==
[2014-12-29 08:08] VITALS: BMI 43.5
[~2018-09-15] MED LIST changes: +[UNRECOGNIZED DRUG - OTHER]
--- NOTE | 2018-09-15 17:43 | RADIOLOGY IMAGING REPORT ---
[place] [facility] [place] NAME: Sharmaine Martin : 1940 MR: [id number] V: [id number] EXAM DATE: ORDERING PHYSICIAN: DAVID CASTELLANO TECHNOLOGIST: Location: [facility] [place] Patient: Sharmaine Martin : 1940 Visit/Account:[id number] Date of Sevice: 09/15/2018 VENOUS DOPP UPPER RIGHT EXTREM HISTORY: Right arm swelling x3 weeks. COMPARISON: None. FINDINGS: Grayscale compression, duplex and color Doppler interrogation of the right upper extremity veins was performed. Deep Veins: Jugular vein - Negative. Subclavian vein - Negative. Axillary vein - Negative. Brachial vein - Negative. Superficial Veins: Cephalic vein - Negative. Basilic veins - Negative. Additional findings - None. IMPRESSION: Negative right upper extremity ultrasound for venous thrombus. Report Dictated By: Christian Alonzo MD at 09/15/2018 5:36 PM Report E-Signed By: Christian Alonzo MD at 09/15/2018 5:39 PM WSN:[id number]
== END ==
LOC: LAB 15:32
PROVIDERS: ATTEND Nurse Practitioner Family
DX: M79.89 Other specified soft tissue disorders (principal)
CPT/HCPCS: 36415; 85379; 93970

== ENCOUNTER 2018-09-20 13:00 | Outpatient (RCR) | payer MEDICARE, OTHER ==
[2014-12-29 08:08] VITALS: BMI 43.5
--- NOTE | 2018-06-24 17:13 | PT INITIAL EVALUATION ---
MEDICAL DIAGNOSIS: Breast Cancer TREATMENT DIAGNOSIS: Breast Cancer, Axillary Cording, Cervical Dysfunction DATE OF ONSET: 06/24/18 SUBJECTIVE: Sharmaine is a 77 year old female presenting to physical therapy following development of B shoulder pain that started around February 2018 following a fall down the stairs. Pt reports a history of R breast cancer with mastectomy in 2014 following which she has had continual R shoulder problems. Pt received both hormonal treatment as well as radiation therapy as well. Pt reports that this recent shoulder pain seems to be more on the R side than the left sometimes reaching all the way down to the fingers. Pain is currently in the neck, and to the elbow level of the R UE rated at 6/10, additionally in the L UE to the level of the deltoid rated at 5/10. Pain occasionally increases to a 10/10 at worst with headache, and goes down with antiinflammatory medication, which pt admits she should not be taking with her other medications for her cancer. 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 She also feels uncomfortable about her scaring on the R side and occasionally gets pain in the armpit with reaching. REHAB PROBLEM LIST: Increased Pain Decreased ROM Decreased Strength Decreased Endurance Decreased Function Decreased ADL's Decreased Mobility PREVIOUS MEDICAL HISTORY: Pt has a history of a C4 fusion 15 years prior, see EMR OCCUPATION: See EMR OBJECTIVE: Pt presents with decreased breast tissue on the R chest with significant scaring along the lateral and anterior chest wall extending to the axilla. Posture: Rounded shoulders with forward head ROM: Cervical ROM: flexion: full without pain, ext: moderately limited with R sided neck pain, L SB: 24, R SB: 34, L rot: 52, R rot: 65. Shoulder ROM (R, L): flexion: 106, 122, abd: 90, 130, ER: 59, 64, IR: L1, T6. Palpation: Pt has significant axillary cording in the anterior and medial axilla extending down into the chest wall. Sensation: Pt reports no numbness or tingling in extremities. Special Tests: Repeated cervical motion: flexion: pain increased down to L elbow and. ext with retraction: pain centralized to no pain in L shoulder or UE, and from neck to R shoulder only. Other Objective Findings: Quick DASH: 38.6% Impairment ASSESSMENT: Sharmaine shows signs and symptoms consistent with cervical dysfunction with radiating pain as well as R axillary cording. Physical therapy is indicated to address the above listed deficits as well as improve pt function with ADL's and social activities. Short Term Goals In 3 weeks pt will centralize pain to the neck only without radiation into B UE for improved function with ADL's. In 6 weeks pt will improve R shoulder ROM to equal to the contralateral limb for improved function with ADL's. In 6 weeks pt will improve Quick DASH impairment score to < 19% for improved function with ADL's. In 6 weeks pt will be able to lift 30# from waist to shoulder for functional ability to carry grandchildren. Patient's Goals Decrease shoulder pain and improve shoulder function with ADL's and social activities. PLAN: Patient to be seen for Manual Therapy/STM/MET Strengthening/condition Ice/Heat Range of Motion Spinal Stabilization Ultrasound Stretching Neuromuscular Re-ed Closed Chain Program Electrical Stim Posture/Body mechanics Home Exercise Program Mech./Manual Traction Therapeutic Activities 3x/Week for 6 Weeks If you have any questions, comments, or concerns about this report or plan, please contact me at . Thank you, Lizette Rodriguez, PT, DPT, CLT MTDD
--- NOTE | 2018-09-10 16:36 | PT PLAN OF CARE ---
Physician: Adis Hooker MD Patient is being seen: 2x/Week Therapist: Lizette Rodriguez, PT, DPT, CLT Medical Diagnosis: Breast Cancer Treatment Diagnosis: Breast Cancer, Axillary Cording, Cervical Dysfunction Date of Onset: 06/24/18 Date of Initial Evaluation: 06/23/18 Date patient was last seen: 09/10/18 Number of treatments: 10 Number of cancellations/No shows: 9 INTERVENTIONS: Manual Therapy/STM/MET Strengthening/condition Ice/Heat Range of Motion Spinal Stabilization Ultrasound Stretching Neuromuscular Re-ed Closed Chain Program Electrical Stim Posture/Body mechanics Home Exercise Program Mech./Manual Traction Therapeutic Activities GOALS: In 3 weeks pt will centralize pain to the neck only without radiation into B UE for improved function with ADL's. MET In 6 weeks pt will improve R shoulder ROM to equal to the contralateral limb for improved function with ADL's. In Progress In 6 weeks pt will improve QuickDASH impairment score to <19% for improved function with ADL's. In Progress In 6 weeks pt will be able to lift 30# from waist to shoulder for functional ability to carry grandchildren. In Progress PATIENT'S GOAL: Decrease shoulder pain and improve shoulder function with ADL's and social activities. Status of Patient's Goals: 1/4 MET, 3/4 In Progress Patient Compliance: Fair Prognosis: Good Reasons for continuing therapy: Sharmaine shows great improvement in B shoulder mobility with reductions in R post mastectomy scar tissue adhesions. Pt remains to have occasional impingement in end range reaching or with weighted lifting secondary to poor scapular-humeral rhythm. However, pt is able to correct scapular positioning with cuing. Further PT is indicated for this patient to further improve soft tissue mobility surrounding R axilla and pectoral muscles, as well as improve pt function with lifting heavy items for ADL's and playing with her grand-kids. Posture: Rounded shoulders with forward head ROM: Cervical ROM: flexion/ext: full without pain, L SB: 32, R SB: 34, L rot: 60, R rot: 65. Shoulder ROM (R, L): flexion: 126, 132, abd: 120, 135, ER: 68, 72, IR: T12, T6. Palpation: Pt has moderate-significant axillary cording in the anterior and medial axilla extending down into the chest wall. If you have any questions or concerns, please feel free to contact me at [phone]. Thank you, Lizette Rodriguez, PT, DPT, CLT MTDD
== END 2018-09-21 ==
LOC: PT 13:00
PROVIDERS: ATTEND Internal Medicine Medical Oncology
DX: C50.811 Malignant neoplasm of overlapping sites of right female breast (principal); C64.9 Malignant neoplasm of unspecified kidney, except renal pelvis; M99.01 Segmental and somatic dysfunction of cervical region; I97.2 Postmastectomy lymphedema syndrome; Z90.11 Acquired absence of right breast and nipple; Z92.3 Personal history of irradiation; R53.1 Weakness; Z98.1 Arthrodesis status
CPT/HCPCS: 97162

== ENCOUNTER 2018-10-15 14:30 | Outpatient (RCR) | payer MEDICARE, OTHER ==
[2014-12-29 08:08] VITALS: BMI 43.5
--- NOTE | 2018-09-22 15:36 | PT PLAN OF CARE ---
Physician: Adis Hooker MD Patient is being seen: 3x/Week Therapist: Lizette Rodriguez, PT, DPT, CLT Medical Diagnosis: Breast Cancer Treatment Diagnosis: Breast Cancer, Axillary Cording, Cervical Dysfunction Date of Onset: 06/24/18 Date of Initial Evaluation: 06/23/18 Date patient was last seen: 09/22/18 Number of treatments: 12 Number of cancellations/No shows: 9 INTERVENTIONS: Manual Therapy/STM/MET Strengthening/condition Ice/Heat Range of Motion Spinal Stabilization Ultrasound Stretching Neuromuscular Re-ed Closed Chain Program Electrical Stim Posture/Body mechanics Home Exercise Program Mech./Manual Traction Therapeutic Activities GOALS: In 3 weeks pt will centralize pain to the neck only without radiation into B UE for improved function with ADL's. MET In 6 weeks pt will improve R shoulder ROM to equal to the contralateral limb for improved function with ADL's. In Progress In 6 weeks pt will improve QuickDASH impairment score to <19% for improved function with ADL's. In Progress In 6 weeks pt will be able to lift 30# from waist to shoulder for functional ability to carry grandchildren. In Progress PATIENT'S GOAL: Decrease shoulder pain and improve shoulder function with ADL's and social activities. Status of Patient's Goals: 1/4 MET, 3/4 In Progress Patient Compliance: Fair Prognosis: Good Reasons for continuing therapy: Sharmaine shows onset of R UE Lymphedema following recent blood draws with increased swelling throughout the arm. Pitting present just above the wrist with quick refill and (-) Stemmer's sign is present in hand and digits. MLD initiated for redirection of lymph fluid to promote drainage.Sharmaine shows great improvement in B shoulder mobility with reductions in R post mastectomy scar tissue adhesions. Pt remains to have occasional impingement in end range reaching or with weighted lifting secondary to poor scapular-humeral rhythm. However, pt is able to correct scapular positioning with cuing. Further PT is indicated for this patient to further improve soft tissue mobility surrounding R axilla and pectoral muscles, as well as improve pt function with lifting heavy items for ADL's and playing with her grand-kids. Posture: Rounded shoulders with forward head ROM: Cervical ROM: flexion/ext: full without pain, L SB: 32, R SB: 34, L rot: 60, R rot: 65. Shoulder ROM (R, L): flexion: 126, 132, abd: 120, 135, ER: 68, 72, IR: T12, T6. Palpation: Pt has moderate-significant axillary cording in the anterior and medial axilla extending down into the chest wall. Special Tests: Stemmer's sign (-) Circumferential Measures in cm (R,L): 1st digit: 6.6, 6.6, 2nd digit: 7, 7, 3rd: 6.9, 6.6, 4th: 6.4, 6.4, 5th: 5.5, 5.5, Dorsum: 21.1, 19.4, Wrist: 19.3, 17.3, Hand diagonal: 24.1, 21.2, Forearm: 33.5, 30.1, Elbow: 32.8, 31.4, 10cm above elbow: 42.1, 40.7 If you have any questions or concerns, please feel free to contact me at [phone]. Thank you, Lizette Rodriguez, PT, DPT, CLT JEREMY
[2018-10-18] MEDS ORDERED: FLUO40CA67 PO (10:03)
[2018-10-20] MEDS ORDERED: GLY25 PO (14:18)
[2018-10-28] MEDS ORDERED: GUAI120L3 PO (16:53)
[2018-10-28] MEDS ORDERED: BENZ200C15 PO (16:53)
[2018-10-28] MEDS ORDERED: PRED20TA6 PO (16:53)
[2018-10-28] MEDS ORDERED: OSE75 PO (16:53)
[2018-10-28] MEDS ORDERED: ALB18R IH (16:57)
== END 2018-10-15 18:00 | disposition home or self-care (01) ==
LOC: PT 14:30
PROVIDERS: ATTEND Internal Medicine Medical Oncology
DX: C50.811 Malignant neoplasm of overlapping sites of right female breast (principal); M99.01 Segmental and somatic dysfunction of cervical region

== ENCOUNTER → 2018-10-18 | Outpatient (CLI) | payer MEDICARE, OTHER ==
[2014-12-29 08:08] VITALS: BMI 43.5
[~2018-10-18] MED LIST changes: +FLUO40CA67 PO
== END ==
LOC: LAB 10:07
PROVIDERS: ATTEND Nurse Practitioner Family
DX: R94.6 Abnormal results of thyroid function studies (principal)
CPT/HCPCS: 36415; 84439; 84443; 84480

== ENCOUNTER → 2018-10-28 | Outpatient (CLI) | payer MEDICARE, OTHER ==
[2014-12-29 08:08] VITALS: BMI 43.5
[~2018-10-28] MED LIST changes: +ALB18R IH; +BENZ200C15 PO; +GUAI120L3 PO; +OSE75 PO; +PRED20TA6 PO
--- NOTE | 2018-10-28 14:41 | RADIOLOGY IMAGING REPORT ---
FACILITY: [facility] PATIENT NAME: Sharmaine Martin : 1940 MR: [id number] V: [id number] EXAM DATE: ORDERING PHYSICIAN: DAVID CASTELLANO TECHNOLOGIST: Location: Patient: Sharmaine Martin : 1940 Visit/Account:[id number] Date of Sevice: 10/28/2018 Technique: CHEST PA LAT HISTORY: Cough, congestion Comparison studies: CT chest 06/07/2018, chest radiograph 05/08/2018 FINDINGS: No acute airspace consolidation. There remains central peribronchial thickening. Left basi lar scarring is noted. Prominence of the bronchopulmonary vasculature is noted. Cardiac silhouette is unchanged. IMPRESSION: 1. Findings consistent with bronchitis, asthma or tobacco usage. Report Dictated By: Guru Cuba DO at 10/28/2018 2:33 PM Report E-Signed By: Guru Cuba DO at 10/28/2018 2:35 PM WSN:[email or web address]
== END ==
LOC: RAD 14:05
PROVIDERS: ATTEND Nurse Practitioner Family
DX: R91.8 Other nonspecific abnormal finding of lung field (principal); R05 Cough; R09.89 Other specified symptoms and signs involving the circulatory and respiratory systems; R50.9 Fever, unspecified
CPT/HCPCS: 71046; 87502

== ENCOUNTER → 2018-11-23 | Outpatient (CLI) | payer MEDICARE, OTHER ==
[2014-12-29 08:08] VITALS: BMI 43.5
--- NOTE | 2018-11-23 09:33 | RADIOLOGY IMAGING REPORT ---
FACILITY: [facility] PATIENT NAME: Sharmaine Martin : 1940 MR: [id number] V: [id number] EXAM DATE: ORDERING PHYSICIAN: DAVID CASTELLANO TECHNOLOGIST: Location: [facility] - [place] Patient: Sharmaine Martin : 1940 Visit/Account:[id number] Date of Sevice: 11/23/2018 Exam type: US ANKLE BRACHIAL INDICES History: Claudication Comparison: None. Findings: The patient was unable to tolerate the examination there for this was a nondiagnostic study IMPRESSION: 1. As above Report Dictated By: Gely Camacho MD at 11/23/2018 9:28 AM Report E-Signed By: Gely Camacho MD at 11/23/2018 9:29 AM WSN:[id number]
--- NOTE | 2018-11-23 10:55 | RADIOLOGY IMAGING REPORT ---
FACILITY: [facility] - [place] PATIENT NAME: Sharmaine Martin : 1940 MR: [id number] V: [id number] EXAM DATE: ORDERING PHYSICIAN: DAVID CASTELLANO TECHNOLOGIST: Location: [facility] [place] Patient: Sharmaine Martin : 1940 Visit/Account:[id number] Date of Sevice: 11/23/2018 DEXA Scan Clinical history: Osteopenia. Comparison: DEXA scan from 05/22/2017. LUMBAR SPINE: The bone mineral density (BMD) measured from L1-L4 correlates with a Z-score 0.0 and a T-score of -0 .7 which is Normal as defined by the World Health Organization. The corresponding risk of fracture i n the lumbar spine is Not increased compared with a young adult reference population. This value has increase by 0.7 % since the prior study. More than 5% change is considered significant. HIP: Bone mineral density (BMD) measured in the Left femoral neck region correlates with a Z-score -0.1 an d a T-score of -1.4 which is osteopenia as defined by the World Health Organization. The correspon ding risk of fracture in the hip is increased compared with a young adult reference population. The t otal hip value has increased by 2.3 % since the prior study. More than 5% change is considered signi ficant. Bone mineral density (BMD) measured in the Femoral Neck region measures 0.839 g/cm2. IMPRESSION: 1. Lumbar spine: Normal. There has been increased in the bone mineral density since the previous ex am. 2. Left femoral neck region: Osteopenia. There has been decrease in the bone mineral density of the total hip since the previous exam. 3. Femoral Neck: Bone Mineral Density is 0.839 g/cm2 The next DEXA scan of this patient should include the following sites: L1-L4 and the left hip. FRAX? WHO Fracture Risk Assessment Tool link: <http://www.shef.ac.uk/FRAX/tool.jsp?locationValue=9> PLEASE NOTE: 1) The World Health Organization defines low BMD as follows: T-score Normal > -1 Osteopenia < -1 and > -2.5 Osteoporosis < -2.5 without fractures Established osteoporosis < -2.5 with fractures 2) In general, you may wish to consider: Diagnosis Treatment Follow-up DEXA Normal BMD Prevention 2-3 years Osteopenia Prevention/therapy 1-2 years Osteoporosis Therapy Yearly 3) Fracture risk estimated from the T-score is more accurate for vertebral fractures (often spontane ous) than for hip fractures. Report Dictated By: Suman Flores at 11/23/2018 10:50 AM Report E-Signed By: Suman Flores at 11/23/2018 10:52 AM WSN:[id number]
--- NOTE | 2018-11-23 15:30 | RADIOLOGY IMAGING REPORT ---
[place] [facility] [place] PATIENT NAME: CARLOS PETERS : [id number] MR: [id number] V: [id number] EXAM DATE: [id number] ORDERING PHYSICIAN: DAVID CASTELLANO TECHNOLOGIST: Sharyn Collins PROCEDURE: MAMMOGRAM SCREENING LEFT UNILATERAL WITH CAD ASSISTED INTERPRETATION & 3D TOMOSYNTHESIS COMPARISON: Prior Left mammograms 10/31/15, 12/06/14. INDICATIONS: screening FINDINGS: The Left breast is heterogeneously dense which can obscure small masses. The parenchymal pattern has remained stable allowing for difference in mammographic technique & patient positioning. DIAGNOSTIC CATEGORY 1--NEGATIVE. RECOMMENDATIONS: ROUTINE MAMMOGRAM AND CLINICAL EVALUATION. IMPRESSION: BIRADS 1: Negative. No significant abnormality is seen. Dictated by: Gely Camacho M.D. on 11/23/2018 at 12:16 Transcribed by: CEASAR on 11/23/2018 at 13:39 Approved by: Gely Camacho M.D. on 11/23/2018 at 15:29 [facility]
== END ==
LOC: MAMO 01:41
PROVIDERS: ATTEND Nurse Practitioner Family
DX: Z13.820 Encounter for screening for osteoporosis (principal); Z12.31 Encounter for screening mammogram for malignant neoplasm of breast; I73.9 Peripheral vascular disease, unspecified; M85.80 Other specified disorders of bone density and structure, unspecified site
CPT/HCPCS: 77063; 77067; 77080; 93922

== ENCOUNTER 2018-12-29 08:37 | Outpatient (RCR) | payer MEDICARE, OTHER ==
[2014-12-29 08:08] VITALS: Wt 103.5 kg
[2018-10-04 11:04] LABS: PLATELET COUNT, AUTOMATED 143 K/uL (150-450)
[2018-10-13 09:03] VITALS: BP 142/68
--- NOTE | 2018-10-13 14:06 | ONCOLOGY FOLLOW UP NOTE ---
EVENT DATE: October 13, 2018 REASON FOR FOLLOWUP 1. Oligometastatic breast cancer, ongoing aromatase inhibitor therapy. 2. Renal cell carcinoma, status post partial nephrectomy. INTERIM HISTORY Sharmaine returns to clinic for a followup visit today. Since our last visit, she reports that she has continued to deal with diffuse arthralgias that tend to be somewhat variable. Some days they are particularly problematic and some days she does better. She has also been working with physical therapy and this has been quite helpful. She does have some lymphedema of the right arm and she is waiting for a sleeve. She has been very happy with physical therapy. She reports no other new symptoms including shortness of breath, changes in bowel and bladder habits and skin changes. She has noticed no new lumps or bumps of the chest wall, underarms or groin. ONCOLOGY HISTORY 1. Initial presentation in spring with a mammogram showing a nonspecific density in the right breast posterior to the nipple, as well as concern for nipple inversion. A subsequent ultrasound showed a 2.2 x 2.0 x 1.0 cm hypoechoic abnormality in the 6 o'clock position. She then underwent an ultrasound-guided biopsy of the right breast mass. a. December 28, 2014, right modified radical mastoidectomy. Pathology shows invasive ductal carcinoma, 1.5 cm, five of seven lymph nodes positive. Estrogen receptor positive at 98%, progesterone receptor positive at 95%, HER2/rik was 1+, with Ki-67 being 18.9%. b. January 18, 2015: CT/PET scan shows hypermetabolic focus in the left acetabulum with SUV of 6.7. c. January 22, 2015, MRI pelvis: 1.9 cm isolated bone metastatic lesion within the anterosuperior left acetabulum. d. January 31, 2015: Left iliac core biopsy shows involvement by a non-small cell carcinoma with features most compatible with metastatic adenocarcinoma of breast origin. Of note, tumor markers at this time were unremarkable. e. February 07, 2015: Initiation of palliative Arimidex 1 mg p.o. daily. f. February 26, 2015: Initiation of palliative radiation to the left acetabulum and chest wall. g. Ongoing clinical followup with tumor markers and imaging. Her most recent followup CT/PET scan was on January 18, 2015. This showed postoperative changes from right mastectomy, postoperative changes with one FDG uptake over the right chest wall, and FDG avid focus in the left acetabulum with no CT correlate. Incidentally noted was an enlarged main pulmonary artery suggesting pulmonary arterial hypertension. h. May 20, 2017, CT/PET scan: Postoperative changes from right breast mastectomy, cholecystectomy, and surgical changes to the left kidney are stable. No evidence of breast cancer recurrence or metastasis in the neck, chest, abdomen, pelvis, or upper thighs. i. June 07, 2018, CT of chest, abdomen, and pelvis reveals stable changes from prior CT/PET scan. 2. Renal cell carcinoma. Initial presentation in mid 2015 with imaging concerns for a left kidney mass. a. February 15, 2016: Core needle biopsies of left kidney mass show renal carcinoma, clear cell type, grade 1 (well differentiated), no angiolymphatic invasion is identified. b. April 23, 2016: Left partial nephrectomy. Pathology: 2.8 cm (pT1a) unifocal renal cell carcinoma, clear cell type. Sarcomatoid features and tumor necrosis were not identified. This was a grade 1, well differentiated renal cell carcinoma. Capsular and resection margins were negative for carcinoma. PAST MEDICAL HISTORY 1. Type 2 diabetes mellitus. 2. Obesity. 3. Breast cancer, as above. 4. Renal cell carcinoma, as above. 5. Reported mild depression. 6. Hypertension. PAST SURGICAL HISTORY 1. Status post cervical spinal fusion. 2. History of cholecystectomy. 3. History of hysterectomy. 4. History of cataract surgery. 5. History of right knee replacement. 6. Breast surgery and partial nephrectomy as noted in the Oncologic History. CURRENT MEDICATIONS 1. Multivitamin. 2. Arimidex 1 mg p.o. daily. 3. Metformin. 4. Potassium. 5. Doxazosin. 6. Fluoxetine. 7. Lisinopril/hydrochlorothiazide. 8. Glyburide. ALLERGIES KIWI and DIAZEPAM. FAMILY HISTORY There is a family history of breast cancer in a maternal aunt, diagnosed at 60- plus years. There is also a family history of lung cancer. SOCIAL HISTORY The patient is retired. 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 She is and has two sons. She drinks alcohol only occasionally. There is no history of smoking or illicit drug use. VITAL SIGNS Temperature is 97.2, blood pressure 142/68, heart rate is 62, respirations 16, oxygen saturation is 90% on room air. Weight 103.5 kg. PHYSICAL EXAMINATION GENERAL: Patient is alert and oriented x3, in no apparent distress, sitting in the exam room chair. She is interactive and quite pleasant. She is overweight. HEENT: Anicteric sclerae. NEUROLOGIC: Grossly nonfocal, although her gait is antalgic. It is stable. EXTREMITIES: Some edema of the right upper extremity but none on the left. SKIN: No concerning rash or lesion. LABORATORY STUDIES Reviewed per the [facility] record. Tumor markers are normal. IMAGING None today. ASSESSMENT AND PLAN 1. Oligometastatic estrogen receptor-positive right breast cancer. Sharmaine has had a positive experience with ongoing physical therapy and she continues on Arimidex. She does not have obvious signs or symptoms to suggest cancer recurrence but her pain continues to be addressed. She also is awaiting a sleeve for right arm lymphedema. She has been very happy with her progress with physical therapy and she plans to continue it. We discussed again the merits of continuing Arimidex and she is in favor of doing so. We reviewed prior imaging. We discussed her tumor markers which are, again, normal. I would like for her to follow up in the next couple of months and for her to have another CT scan of the chest, abdomen and pelvis performed prior to that visit. She is in agreement with this plan. Of course, we would be happy to see her sooner if there are questions or concerns. 2. Renal cell carcinoma. Most recently, imaging findings have been stable. This will again be addressed with followup imaging at her next appointment. JEREMY
[2018-12-29 08:50] VITALS: BP 129/53
[2018-12-29 10:01] LABS: PLATELET COUNT, AUTOMATED 153 K/uL (150-450)
== END 2018-12-30 ==
LOC: SPU 08:37
PROVIDERS: ATTEND Internal Medicine Medical Oncology
DX: C50.811 Malignant neoplasm of overlapping sites of right female breast (principal); C64.2 Malignant neoplasm of left kidney, except renal pelvis; N28.89 Other specified disorders of kidney and ureter; Z79.811 Long term (current) use of aromatase inhibitors; Z90.5 Acquired absence of kidney; M25.50 Pain in unspecified joint; F32.9 Major depressive disorder, single episode, unspecified; I10 Essential (primary) hypertension; I89.0 Lymphedema, not elsewhere classified; Z79.84 Long term (current) use of oral hypoglycemic drugs; E11.9 Type 2 diabetes mellitus without complications; E66.9 Obesity, unspecified
CPT/HCPCS: 36415; 71250; 74176; 82378; 83036; 84439; 84443; 84480; 85025; 86300; G0463; 82040; 82247; 82310; 82374; 82435; 82465; 82565; 82947; 83718; 84075; 84132; 84155; 84295; 84450; 84460; 84478; 84520; 99212

== ENCOUNTER → 2018-12-29 | Outpatient (REF) | payer MEDICARE, OTHER ==
[2014-12-29 08:08] VITALS: BMI 43.5
== END ==
LOC: LAB 09:54
PROVIDERS: ATTEND Nurse Practitioner Family
DX: E11.69 Type 2 diabetes mellitus with other specified complication (principal); I10 Essential (primary) hypertension
CPT/HCPCS: 36415; 83036; 84443

== ENCOUNTER 2019-01-05 09:38 | Outpatient (RCR) | payer MEDICARE, OTHER ==
[2014-12-29 08:08] VITALS: Wt 99.3 kg
[2019-01-05 09:50] VITALS: BP 107/76
[2019-01-12] MEDS ORDERED: AMLO-552 PO (11:30)
[2019-01-12] MEDS ORDERED: METF-450 PO (11:30)
[2019-01-12] MEDS ORDERED: FLUO40CA67 PO (11:30)
[2019-01-12] MEDS ORDERED: POTA-53 PO (11:30)
--- NOTE | 2019-01-13 09:43 | ONCOLOGY FOLLOW UP NOTE ---
EVENT DATE: January 05, 2019 REASON FOR FOLLOWUP 1. Oligometastatic breast cancer, ongoing aromatase inhibitor therapy. 2. Renal cell carcinoma, status post partial nephrectomy. INTERIM HISTORY Sharmaine returns to clinic for a followup visit today. Since our last visit, she reports that things have been going about the same. She continues to try to get a bit more physical activity. She has ongoing arthralgias and fatigue but she does not feel that these have worsened. She reports minimal hot flashes. Her appetite is good. Her weight has been stable. She denies shortness of breath, chest pain and cough. She has had no recent changes in bowel or bladder habits. She continues on aromatase inhibitor therapy, which she believes is going quite well, all things considered. She has undergone a followup CT scan and she is here to review the results. ONCOLOGY HISTORY 1. Initial presentation in spring with a mammogram showing a nonspecific density in the right breast posterior to the nipple, as well as concern for nipple inversion. A subsequent ultrasound showed a 2.2 x 2.0 x 1.0 cm hypoechoic abnormality in the 6 o'clock position. She then underwent an ultrasound-guided biopsy of the right breast mass. a. December 28, 2014, right modified radical mastoidectomy. Pathology shows invasive ductal carcinoma, 1.5 cm, five of seven lymph nodes positive. Estrogen receptor positive at 98%, progesterone receptor positive at 95%, HER2/rik was 1+, with Ki-67 being 18.9%. b. January 18, 2015: CT/PET scan shows hypermetabolic focus in the left acetabulum with SUV of 6.7. c. January 22, 2015, MRI pelvis: 1.9 cm isolated bone metastatic lesion within the anterosuperior left acetabulum. d. January 31, 2015: Left iliac core biopsy shows involvement by a non-small cell carcinoma with features most compatible with metastatic adenocarcinoma of breast origin. Of note, tumor markers at this time were unremarkable. e. February 07, 2015: Initiation of palliative Arimidex 1 mg p.o. daily. f. February 26, 2015: Initiation of palliative radiation to the left acetabulum and chest wall. g. Ongoing clinical followup with tumor markers and imaging. Her most recent followup CT/PET scan was on January 18, 2015. This showed postoperative changes from right mastectomy, postoperative changes with one FDG uptake over the right chest wall, and FDG avid focus in the left acetabulum with no CT correlate. Incidentally noted was an enlarged main pulmonary artery suggesting pulmonary arterial hypertension. h. May 20, 2017, CT/PET scan: Postoperative changes from right breast mastectomy, cholecystectomy, and surgical changes to the left kidney are stable. No evidence of breast cancer recurrence or metastasis in the neck, chest, abdomen, pelvis, or upper thighs. i. June 07, 2018, CT of chest, abdomen, and pelvis reveals stable changes from prior CT/PET scan. j. December 29, 2018: CT chest, abdomen and pelvis reveals prominent primary trunk and main pulmonary arteries similar to prior study, prominent inferior left lobe of thyroid, postsurgical changes from partial left nephrectomy. There are hypo and hyperdense masses in the kidneys that appear unchanged. 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 2. Renal cell carcinoma. Initial presentation in mid 2015 with imaging concerns for a left kidney mass. a. February 15, 2016: Core needle biopsies of left kidney mass show renal carcinoma, clear cell type, grade 1 (well differentiated), no angiolymphatic invasion is identified. b. April 23, 2016: Left partial nephrectomy. Pathology: 2.8 cm (pT1a) unifocal renal cell carcinoma, clear cell type. Sarcomatoid features and tumor necrosis were not identified. This was a grade 1, well differentiated renal cell carcinoma. Capsular and resection margins were negative for carcinoma. PAST MEDICAL HISTORY 1. Type 2 diabetes mellitus. 2. Obesity. 3. Breast cancer, as above. 4. Renal cell carcinoma, as above. 5. Reported mild depression. 6. Hypertension. PAST SURGICAL HISTORY 1. Status post cervical spinal fusion. 2. History of cholecystectomy. 3. History of hysterectomy. 4. History of cataract surgery. 5. History of right knee replacement. 6. Breast surgery and partial nephrectomy as noted in the Oncologic History. ALLERGIES KIWI and DIAZEPAM. FAMILY HISTORY There is a family history of breast cancer in a maternal aunt, diagnosed at 60- plus years. There is also a family history of lung cancer. SOCIAL HISTORY The patient is retired. 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 She is and has two sons. She drinks alcohol only occasionally. There is no history of smoking or illicit drug use. CURRENT MEDICATIONS 1. Ziac. 2. Albuterol. 3. Benzonatate. 4. Fluoxetine 5. Amlodipine. 6. Doxazosin. 7. Metformin. 8. Anastrazole. 9. Glyburide. 10. Potassium. VITAL SIGNS Temperature is 97.4, blood pressure 107/76, heart rate is 81, respirations 16, oxygen saturation is 90% on room air. Weight 99.3 kg. PHYSICAL EXAMINATION GENERAL: Patient is alert and oriented x3, in no apparent distress, sitting in the exam room chair. HEENT: Anicteric sclerae. NEUROLOGIC: Grossly nonfocal. Her gait is somewhat antalgic but stable. EXTREMITIES: Some edema of the right upper extremity but no tenderness. SKIN: No concerning rash or lesion. LABORATORY STUDIES Reviewed per the [facility] record. IMAGING Please see Oncology History. ASSESSMENT AND PLAN 1. Oligometastatic estrogen receptor-positive right breast cancer. Sharmaine continues on palliative aromatase inhibitor therapy. Tolerance to date has been very good. She has no concerning signs or symptoms today to suggest recurrence of breast cancer. We spent time reviewing her followup CT scan. The study is encouraging, without evidence of recurrence/progression. We will have her continue aromatase inhibitor and she will follow up here in three months or sooner if there are questions or concerns. She apparently had a lymphedema sleeve delivered recently but she has not yet used it. I have encouraged her to do so as well as follow up with physical therapy. 2. Renal cell carcinoma. CT images are stable from prior and this is encouraging as well. We will continue to follow up on her kidney cancer with imaging for breast cancer surveillance. All questions answered today. DELILAHD
[2019-03-04] MEDS ORDERED: ANAS1TAB12 PO (16:28)
== END 2019-04-04 ==
LOC: ONC 09:38
PROVIDERS: ATTEND Internal Medicine Medical Oncology
DX: C50.811 Malignant neoplasm of overlapping sites of right female breast (principal); Z17.0 Estrogen receptor positive status [ER+]; Z92.3 Personal history of irradiation; Z79.811 Long term (current) use of aromatase inhibitors; C64.2 Malignant neoplasm of left kidney, except renal pelvis
CPT/HCPCS: 99212